=== PATIENT | female | born 1970 | race Caucasian/White ===

== ENCOUNTER 2017-03-16 11:19 | Outpatient (RCR) | payer BC ==
[~2017-03-16 11:19] MED LIST: CLON-388 PO; ESCI5TAB10 PO; VITA-198 PO
== END 2017-03-17 08:28 | disposition home or self-care (01) ==
LOC: RAON 11:19
PROVIDERS: ATTEND Radiology Radiation Oncology
DX: Z85.3 Personal history of malignant neoplasm of breast (principal); Z92.3 Personal history of irradiation; Z79.899 Other long term (current) drug therapy
CPT/HCPCS: 99212

== ENCOUNTER 2017-09-27 11:59 | Outpatient (RCR) | payer BC ==
[2017-09-28] MEDS ORDERED: IRON1TAB10 PO (17:13)
[2017-09-28] MEDS ORDERED: MULT-1381 PO (17:13)
== END 2017-09-29 13:44 | disposition home or self-care (01) ==
LOC: RAON 11:59
PROVIDERS: ATTEND Radiology Radiation Oncology
DX: D05.12 Intraductal carcinoma in situ of left breast (principal); D64.9 Anemia, unspecified; E61.1 Iron deficiency; Z79.899 Other long term (current) drug therapy
CPT/HCPCS: 99212

== ENCOUNTER 2018-01-04 09:09 | Emergency (ER) | payer BC ==
[~2018-01-04 09:09] MED LIST changes: +IRON1TAB10 PO; +MULT-1381 PO
[2018-01-04] MEDS ORDERED: CHOL10005 PO (09:18)
--- NOTE | 2018-01-04 09:27 | ER Report ---
History and Physical Time Seen By MD: 09:27 Hx. of Stated Complaint: pt reports lightheadedness, dizziness that started this morning. pt also reports L upper abd pain for months HPI/ROS 47-year-old female presents to the emergency department with 2 complaints. Her 1st complaint is that approximately 2-3 weeks ago she was bending over to put her boots on at which time she felt as if something shifted in her left upper quadrant of her abdomen and she has had intermittent pain since. Then starting yesterday she developed nausea along with the intermittent left upper quadrant abdominal pain. No blunt trauma. No fever chills. No travel outside the [place]. She has had C-sections but no other abdominal surgeries. No vomiting or diarrhea. Able to take by mouth. Also along with nausea, she now describes feeling lightheaded. No chest pain and no shortness of breath. Remainder of the 14 system rev: Yes Allergies: Coded Allergies: No Known Drug Allergies (Unverified , 01/04/18) Home Meds Active Scripts Dicyclomine Hcl (DICYCLOMINE HCL) 20 Mg Tablet, 20 MG PO QID for 10 Days Prov:TARA ERNST MD 01/04/18 Ondansetron Hcl (ZOFRAN) 4 Mg Tablet, 4 MG PO Q4-6H for 7 Days, #14 TAB Prov:TARA ERNST MD 01/04/18 Reported Medications Cholecalciferol (Vitamin D3) (VITAMIN D3) 1,000 Unit Tablet, 1000 UNIT PO QDAY, TAB 01/04/18 Iron,Carbonyl/Vit C/Vit B12/Fa (IRON 100 PLUS TABLET) 1 Each Tablet, 1 EACH PO DAILY 09/28/17 Multivitamin (ONCE DAILY) 1 Each Tablet, 1 EACH PO DAILY 09/28/17 Discontinued Reported Medications Vitamin E Acetate (VITAMIN E) 1,000 Unit Capsule, 1000 UNIT PO DAILY, CAPSULE 07/30/15 Reviewed Nurses Notes: Yes Old Medical Records Reviewed: Yes Hx Substance Use Disorder: No Hx Alcohol Use: No Constitutional Vital Sign - Last 24 Hours 01/04/18 01/04/18 01/04/18 01/04/18 09:12 09:18 09:30 09:45 Temp 98.0 Pulse 68 59 61 Resp 18 7 10 B/P (MAP) 122/79 122/79 (93) 103/76 (85) Pulse Ox 95 95 94 O2 Delivery Room Air 10/23/18 10/23/18 10/23/18 10/23/18 09:50 10:00 10:05 10:20 Pulse 59 60 58 Resp 9 15 13 B/P (MAP) 101/75 (84) Pulse Ox 89 87 91 01/04/18 01/04/18 01/04/18 01/04/18 10:30 11:05 11:20 11:25 Pulse 57 57 59 Resp 11 0 14 B/P (MAP) 101/67 (78) Pulse Ox 91 93 92 01/04/18 01/04/18 01/04/18 01/04/18 11:30 11:40 11:55 12:00 Pulse 59 53 Resp 16 7 B/P (MAP) 92/62 (72) 94/60 (71) Pulse Ox 93 01/04/18 01/04/18 01/04/18 01/04/18 12:10 12:25 12:30 12:40 Pulse 55 55 54 Resp 0 18 12 B/P (MAP) 94/63 (73) 01/04/18 01/04/18 01/04/18 12:45 13:00 13:15 Pulse 57 56 55 Resp 12 10 7 B/P (MAP) 88/66 (73) Physical Exam General Appearance: The patient is alert, has no immediate need for airway protection and no current signs of toxicity. Eyes: Pupils equal and round no injection. Respiratory: Chest is non tender, lungs are clear to auscultation. Cardiac: regular rate and rhythm Gastrointestinal: Abdomen is soft and with mild TTP at the LUQ and RLQ Extremities have full range of motion and are non tender. Skin: No rashes or lesions. DIFFERENTIAL DIAGNOSIS: After history and physical exam differential diagnosis was considered for abdominal pain including but not limited to appendicitis, cholecystitis, gastritis and urinary tract infection. Medical Decision Making Data Points Result Diagram: 01/04/1892401/04/18924 Laboratory Hematology Test 01/04/18 09:14 01/04/18 09:25 01/04/18 09:29 Urine Color Straw Urine Clarity Clear Urine pH 6.0 pH (4.8-9.5) Urine Specific [place] 1.003 Urine Protein Negative mg/dL (NEGATIVE) Urine Glucose (UA) Negative mg/dL (NEGATIVE) Urine Ketones Negative mg/dL (NEGATIVE) Urine Blood Small (NEGATIVE) Urine Nitrite Negative (NEGATIVE) Urine Bilirubin Negative (NEGATIVE) Urine Urobilinogen Negative mg/dL (0.2-1.9) Urine Leukocyte Esterase Negative (NEGATIVE) Urine RBC 1 /HPF (0-2/HPF) Urine WBC None /HPF (0-5/HPF) Urine Squamous Epithelial Cells Many /LPF (</=FEW) Urine Bacteria Negative /HPF (NONE-FEW) Urine Mucus Few /HPF (NONE-FEW) Urine HCG, Qualitative Negative (NEGATIVE) Red Blood Count 4.80 M/uL (4.17-5.56) Mean Corpuscular Volume 90.2 fL (80.0-96.0) Mean Corpuscular Hemoglobin 30.9 pg (26.0-33.0) Mean Corpuscular Hemoglobin Concent 34.2 g/dL (32.0-36.0) Red Cell Distribution Width 12.6 % (11.5-14.5) Mean Platelet Volume 7.2 fL (7.2-11.1) Neutrophils (%) (Auto) 58.5 % (39.4-72.5) Lymphocytes (%) (Auto) 27.5 % (17.6-49.6) Monocytes (%) (Auto) 8.5 % (4.1-12.4) Eosinophils (%) (Auto) 4.3 % (0.4-6.7) Basophils (%) (Auto) 1.2 % (0.3-1.4) Nucleated RBC Relative Count (auto) 0.0 /100WBC Neutrophils # (Auto) 2.2 K/uL (2.0-7.4) Lymphocytes # (Auto) 1.0 K/uL (1.3-3.6) Monocytes # (Auto) 0.3 K/uL (0.3-1.0) Eosinophils # (Auto) 0.2 K/uL (0.0-0.5) Basophils # (Auto) 0.0 K/uL (0.0-0.1) Nucleated RBC Absolute Count (auto) 0.00 K/uL Sodium Level 140 mmol/L (137-145) Potassium Level 4.0 mmol/L (3.5-5.0) Chloride Level 107 mmol/L (98-107) Carbon Dioxide Level 22 mmol/L (22-31) Blood Urea Nitrogen 14 mg/dl (7-18) Creatinine 0.70 mg/dl (0.52-1.04) Glomerular Filtration Rate Calc > 60.0 Random Glucose 93 mg/dl (75-110) Calcium Level 9.1 mg/dl (8.4-10.2) Total Bilirubin 1.1 mg/dl (0.2-1.3) Aspartate Amino Transf (AST/SGOT) 17 U/L (0-35) Alanine Aminotransferase (ALT/SGPT) 21 U/L (0-56) Alkaline Phosphatase 61 U/L (0-126) Total Protein 7.4 g/dl (6.3-8.2) Albumin 4.2 g/dl (3.5-5.0) Whole Blood Glucose 91 mg/DL (75-110) Chemistry Test 01/04/18 09:14 01/04/18 09:25 01/04/18 09:29 Urine Color Straw Urine Clarity Clear Urine pH 6.0 pH (4.8-9.5) Urine Specific [place] 1.003 Urine Protein Negative mg/dL (NEGATIVE) Urine Glucose (UA) Negative mg/dL (NEGATIVE) Urine Ketones Negative mg/dL (NEGATIVE) Urine Blood Small (NEGATIVE) Urine Nitrite Negative (NEGATIVE) Urine Bilirubin Negative (NEGATIVE) Urine Urobilinogen Negative mg/dL (0.2-1.9) Urine Leukocyte Esterase Negative (NEGATIVE) Urine RBC 1 /HPF (0-2/HPF) Urine WBC None /HPF (0-5/HPF) Urine Squamous Epithelial Cells Many /LPF (</=FEW) Urine Bacteria Negative /HPF (NONE-FEW) Urine Mucus Few /HPF (NONE-FEW) Urine HCG, Qualitative Negative (NEGATIVE) White Blood Count 3.7 k/uL (4.5-11.0) Red Blood Count 4.80 M/uL (4.17-5.56) Hemoglobin 14.8 g/dL (12.0-16.0) Hematocrit 43.3 % (34.0-47.0) Mean Corpuscular Volume 90.2 fL (80.0-96.0) Mean Corpuscular Hemoglobin 30.9 pg (26.0-33.0) Mean Corpuscular Hemoglobin Concent 34.2 g/dL (32.0-36.0) Red Cell Distribution Width 12.6 % (11.5-14.5) Platelet Count 180 K/uL (150-450) Mean Platelet Volume 7.2 fL (7.2-11.1) Neutrophils (%) (Auto) 58.5 % (39.4-72.5) Lymphocytes (%) (Auto) 27.5 % (17.6-49.6) Monocytes (%) (Auto) 8.5 % (4.1-12.4) Eosinophils (%) (Auto) 4.3 % (0.4-6.7) Basophils (%) (Auto) 1.2 % (0.3-1.4) Nucleated RBC Relative Count (auto) 0.0 /100WBC Neutrophils # (Auto) 2.2 K/uL (2.0-7.4) Lymphocytes # (Auto) 1.0 K/uL (1.3-3.6) Monocytes # (Auto) 0.3 K/uL (0.3-1.0) Eosinophils # (Auto) 0.2 K/uL (0.0-0.5) Basophils # (Auto) 0.0 K/uL (0.0-0.1) Nucleated RBC Absolute Count (auto) 0.00 K/uL Glomerular Filtration Rate Calc > 60.0 Calcium Level 9.1 mg/dl (8.4-10.2) Total Bilirubin 1.1 mg/dl (0.2-1.3) Aspartate Amino Transf (AST/SGOT) 17 U/L (0-35) Alanine Aminotransferase (ALT/SGPT) 21 U/L (0-56) Alkaline Phosphatase 61 U/L (0-126) Total Protein 7.4 g/dl (6.3-8.2) Albumin 4.2 g/dl (3.5-5.0) Whole Blood Glucose 91 mg/DL (75-110) Urinalysis Test 01/04/18 09:14 Urine Color Straw Urine Clarity Clear Urine pH 6.0 pH (4.8-9.5) Urine Specific [place] 1.003 Urine Protein Negative mg/dL (NEGATIVE) Urine Glucose (UA) Negative mg/dL (NEGATIVE) Urine Ketones Negative mg/dL (NEGATIVE) Urine Blood Small (NEGATIVE) Urine Nitrite Negative (NEGATIVE) Urine Bilirubin Negative (NEGATIVE) Urine Urobilinogen Negative mg/dL (0.2-1.9) Urine Leukocyte Esterase Negative (NEGATIVE) Urine RBC 1 /HPF (0-2/HPF) Urine WBC None /HPF (0-5/HPF) Urine Squamous Epithelial Cells Many /LPF (</=FEW) Urine Bacteria Negative /HPF (NONE-FEW) Urine Mucus Few /HPF (NONE-FEW) Urine HCG, Qualitative Negative (NEGATIVE) ED Course/Re-evaluation ED Course Vague abdominal pain complaints ongoing for weeks. Also with new onset nausea. CT scan remarkable only for cholelithiasis. No infection or obstruction. Will give her Zofran and Bentyl and follow up with Dr. Adams. Decision to Disposition Date: Jan 04, 2018 Decision to Disposition Time: 13:24 Depart Departure Latest Vital Signs Vital Signs Date Time Temp Pulse Resp B/P (MAP) Pulse Ox O2 Delivery O2 Flow Rate FiO2 01/04/18 13:15 55 7 01/04/18 13:00 88/66 (73) 01/04/18 11:40 93 01/04/18 09:12 98.0 Room Air Impression: Primary Impression: Cholelithiasis Condition: Improved Disposition: HOME OR SELF-CARE New Scripts Dicyclomine Hcl (DICYCLOMINE HCL) 20 Mg Tablet 20 MG PO QID for 10 Days Prov: TARA ERNST MD 01/04/18 Ondansetron Hcl (ZOFRAN) 4 Mg Tablet 4 MG PO Q4-6H for 7 Days, #14 TAB Prov: TARA ERNST MD 01/04/18 Patient Instructions: Gallstones (ED) Problem Qualifiers Primary Impression: Cholelithiasis Cholelithiasis location: gallbladder Cholecystitis presence: without cholecystitis Biliary obstruction: without biliary obstruction Qualified Codes: K80.20 - Calculus of gallbladder without cholecystitis without obstruction TARA ERNST MD Jan 04, 2018 09:27
[2018-01-04] MEDS ORDERED: NS(*) 0.9% 1000 ML BAG 1,000 ML IV ONE (09:30)
[2018-01-04] MEDS ORDERED: ONDANSETRON 4 MG/2 ML VIAL IVP ONE (09:40)
[2018-01-04 09:44] LABS: PLATELET COUNT, AUTOMATED 180 K/uL (150-450)
[2018-01-04] MEDS ORDERED: IOPAMIDOL 76% 75 ML INFUS BTL 0 ML ONE (10:35)
[2018-01-04] MEDS ORDERED: IOPAMIDOL 76% 75 ML INFUS BTL 75 ML ONE (10:41)
--- NOTE | 2018-01-04 11:19 | RADIOLOGY IMAGING REPORT ---
FACILITY: [facility] PATIENT NAME: Dhara Quintero : 1970 MR: [id number] V: [id number] EXAM DATE: ORDERING PHYSICIAN: TARA ERNST TECHNOLOGIST: Location: [facility] Patient: Dhara Quintero : 1970 Visit/Account:[id number] Date of Sevice: 01/04/2018 CT abdomen with IV contrast CT pelvis with IV contrast History: Left upper quadrant abdominal pain with nausea. COMPARISON STUDIES: none. TECHNIQUE: Axial CT images were obtained through the abdomen and pelvis during injection of nonioni c iodinated intravenous contrast. Reformatted coronal and sagittal images were also obtained. Contrast: 75 ml of Isovue-370 IV contrast. One of the following dose optimization techniques was utilized in the performance of this exam: Autom ated exposure control; adjustment of the mA and/or kV according to the patient's size; or use of an i terative reconstruction technique. Specific details can be referenced in the facility's radiology C T exam operational policy. FINDINGS: Chest bases: Negative Liver: The right liver lobe is long, measuring 19 cm length. Liver margins are smooth. Gallbladder and bile ducts: There are several 1.2 cm diameter gallstones. Normal sized bile ducts. Spleen: size is normal. Pancreas: negative Adrenal glands: negative Kidneys: There are no renal stones or hydronephrosis. A few bilateral nonspecific subcentimeter irwin ical hypodensities are noted. Pelvic structures: Uterus is septate configuration. Left ovarian dominant cyst or follicle, 2.5 c m. Right ovary is unremarkable. Bowel and mesenteries: Small bowel and colon are unremarkable. Ascites: None Vessels: negative Musculoskeletal: Large anterior opposing endplate osteophyte L1-2. Body wall: negative Lymph node assessment: negative IMPRESSION: 1. No CT finding to explain left upper quadrant abdominal pain. 2. Cholelithiasis. Report Dictated By: Jeny Cleveland MD at 01/04/2018 11:05 AM Report E-Signed By: Jeny Cleveland MD at 01/04/2018 11:16 AM WSN:[id number]
--- NOTE | 2018-01-04 11:40 | RADIOLOGY IMAGING REPORT ---
FACILITY: [facility] PATIENT NAME: Dhara Quintero : 1970 MR: [id number] V: [id number] EXAM DATE: ORDERING PHYSICIAN: TARA ERNST [place]CHN[place] [facility] [place] Dhara Quinter[place] : 1970 Visit/Account:[id number] Date of Sevice: 01/04/2018 CHEST PA AND LAT Indication: left lower chest and upper quadrant pain Comparison: None. Findings: Lungs: Clear. Mediastinum/pulmonary vasculature: Heart size and pulmonary vasculature are normal. Bones/soft tissues: Normal. IMPRESSION: Clear lungs. Report Dictated By: Gilberto Caldera at 01/04/2018 11:35 AM Report E-Signed By: Gilberto Caldera at 01/04/2018 11:36 AM WSN:[email or web address]
[2018-01-04] MEDS ORDERED: DICYCLOMINE HCL 10 MG CAP PO ONE (13:00)
[2018-01-04] MEDS ORDERED: ONDA4TAB97 PO (13:27)
[2018-01-04] MEDS ORDERED: DICY20TA70 PO (13:27)
[2018-01-04 13:30] VITALS: BP 91/67
== END 2018-01-04 13:33 | disposition home or self-care (01) ==
LOC: ER 09:29
DX: K80.20 Calculus of gallbladder without cholecystitis without obstruction (principal)
CPT/HCPCS: 36416; 71046; 74177; 81001; 81025; 82948; 85025; 96361; 96374; 99284; J2405; J7030; Q9967; 82040; 82247; 82310; 82374; 82435; 82565; 82947; 84075; 84132; 84155; 84295; 84450; 84460; 84520

== ENCOUNTER → 2018-02-16 | Outpatient (CLI) | payer BC ==
[~2018-02-16] MED LIST changes: +CHOL10005 PO; +DICY20TA70 PO; +ONDA4TAB97 PO
--- NOTE | 2018-02-17 10:51 | RADIOLOGY IMAGING REPORT ---
FACILITY: [facility] [place] PATIENT NAME: FRANK PRITCHARD : [id number] MR: [id number] V: [id number] EXAM DATE: [id number] ORDERING PHYSICIAN: GAURANG BARLOW TECHNOLOGIST: Zara Childers PROCEDURE:BILATERAL DIAGNOSTIC DIGITAL MAMMOGRAM WITH CAD ASSISTED INTERPRETATION & 3D TOMOSYNTHESIS COMPARISON:Prior mammograms 02/26/17, 03/31/16, 09/17/15, 10/09/14. INDICATIONS:HX BREAST LEFT CA FINDINGS: Moderately dense fibroglandular tissue is seen throughout the breasts. The parenchymal pattern has remained stable allowing for difference in mammographic technique & patient positioning. Biopsy clip is seen in the medial inferior Left breast. There is skin thickening over the Left breast consistent with the history of prior radiation therapy. There is no demonstration of malignant appearing mass or calcifications in either breast at this time. DIAGNOSTIC CATEGORY 2--BENIGN FINDING. RECOMMENDATIONS: ROUTINE MAMMOGRAM AND CLINICAL EVALUATION. IMPRESSION: BIRADS 2: Benign finding. No significant abnormality is seen. Dictated by: Abbie Gilbert M.D. on 02/16/2018 at 17:15 Transcribed by: CHRISTIE on 02/17/2018 at 9:55 Approved by: Abbie Gilbert M.D. on 02/17/2018 at 10:49 [facility]
== END ==
LOC: MAMO 14:00
PROVIDERS: ATTEND Radiology Radiation Oncology
DX: D05.12 Intraductal carcinoma in situ of left breast (principal); Z80.3 Family history of malignant neoplasm of breast
CPT/HCPCS: 77062; 77066

== ENCOUNTER 2018-02-23 06:57 | Outpatient (RCR) | payer BC | END 2018-02-23 17:00 | disposition home or self-care (01) | LOC: RAON 06:57 | PROVIDERS: ATTEND Radiology Radiation Oncology | DX: D05.12 Intraductal carcinoma in situ of left breast (principal); D64.9 Anemia, unspecified; E61.1 Iron deficiency; Z79.899 Other long term (current) drug therapy ==